=== PATIENT | female | born 1985 | race Caucasian/White ===

== ENCOUNTER 2016-06-27 10:53 | Emergency (ER) | payer OTHER ==
[~2016-06-27] VITALS: Ht 170.1 cm; Wt 77.1 kg
[~2016-06-27 10:53] MED LIST: ATIVAN1 MG PO; CIPRO500 MG PO; Phenergan25 MG PO
[2016-06-27] MEDS ORDERED: CYCLOBENZAPRINE10 MG PO (14:01)
[2016-06-27] MEDS ORDERED: Motrin,Rufen800 MG PO (14:01)
== END 2016-06-27 14:14 | disposition home or self-care (01) ==
LOC: ED 10:53
DX: S13.9XXA Sprain of joints and ligaments of unspecified parts of neck, initial encounter (principal); F17.200 Nicotine dependence, unspecified, uncomplicated; Z88.1 Allergy status to other antibiotic agents; V89.2XXA Person injured in unspecified motor-vehicle accident, traffic, initial encounter; Y93.89 Activity, other specified; Y92.89 Other specified places as the place of occurrence of the external cause; Y99.9 Unspecified external cause status

== ENCOUNTER → 2017-07-18 | Outpatient (CLI) | payer OTHER ==
[~2017-07-18] MED LIST changes: +CYCLOBENZAPRINE10 MG PO; +Motrin,Rufen800 MG PO
== END | disposition home or self-care (01) ==
LOC: US 10:41
DX: M79.662 Pain in left lower leg (principal)

== ENCOUNTER 2017-07-27 16:58 | Emergency (ER) | payer OTHER ==
[~2017-07-27] VITALS: Ht 170.1 cm; Wt 74.8 kg
[~2017-07-27 16:58] MED LIST changes: -XARE15TA PO
[2017-07-27] MEDS ORDERED: XARE15TA PO (17:18)
[2017-07-27 17:35] LABS: BASO # 0.1 10*3/uL (0.0-0.1); BASO % 0.8 % (0.0-1.0); EOS # 0.2 10*3/uL (0.0-0.4); EOS % 2.7 % (1.0-4.0); HEMATOCRIT 38.9 % (37.0-47.0); HEMOGLOBIN 13.3 g/dl (12.0-16.0); LYMPH # 1.6 10*3/uL (1.3-4.4); LYMPH % 19.8 % (27.0-41.0); MEAN CELL VOLUME 94.4 fl (81.0-99.0); MEAN CORPUSCULAR HGB 32.3 pg (27.0-31.0); MEAN CORPUSCULAR HGB CONC 34.2 g/dl (33.0-37.0); MEAN PLATELET VOLUME 11.6 fl (9.6-12.3); MONO # 0.6 10*3/uL (0.1-1.0); MONO % 7.2 % (3.0-9.0); NEUT # 5.4 10*3/uL (2.3-7.9); NEUT % 69.2 % (47.0-73.0); PLATELET COUNT AUTOMATED 201 10*3/uL (130-400); RED BLOOD COUNT 4.12 10*6/uL (4.10-5.10); RED CELL DISTRI WIDTH 12.5 % (0-14.5); WHITE BLOOD COUNT 7.8 10*3/uL (4.8-10.8)
[2017-07-27 17:44] LABS: ACT PARTIAL THROMBO TIME 23.7 SECONDS (20.8-31.5); INTERNATIONAL NORM RATIO 0.9 (2.0-3.5)
[2017-07-27 17:54] LABS: ALBUMIN 3.6 gm/dl (3.1-4.5); BUN 9 mg/dl (7-24); CHLORIDE 106 mmol/L (98-107); CREATININE 0.77 mg/dL (0.55-1.02); POTASSIUM 3.9 mmol/L (3.5-5.1); SGOT/AST 16 IU/L (3-35); SGPT/ALT 18 U/L (12-78); SODIUM 141 mmol/L (136-145)
[2017-07-27 18:03] LABS: ALKALINE PHOSPHATASE 73 U/L (45-117)
== END 2017-07-27 18:13 | disposition home or self-care (01) ==
LOC: ED 16:58
PROVIDERS: Physician Assistant
DX: I82.492 Acute embolism and thrombosis of other specified deep vein of left lower extremity (principal); F17.200 Nicotine dependence, unspecified, uncomplicated

== ENCOUNTER → 2017-07-27 | Outpatient (CLI) | payer OTHER ==
[~2017-07-27] MED LIST changes: +XARE15TA PO
== END | disposition home or self-care (01) ==
LOC: US 16:29
DX: I82.492 Acute embolism and thrombosis of other specified deep vein of left lower extremity (principal)

== ENCOUNTER → 2017-09-09 | Outpatient (CLI) | payer OTHER ==
[~2017-09-09] MED LIST changes: +XARE15TA PO
[2017-09-09 20:59] LABS: BASO # 0.1 10*3/uL (0.0-0.1); BASO % 0.8 % (0.0-1.0); EOS # 0.1 10*3/uL (0.0-0.4); EOS % 1.2 % (1.0-4.0); HEMATOCRIT 37.5 % (37.0-47.0); HEMOGLOBIN 12.3 g/dl (12.0-16.0); LYMPH # 2.3 10*3/uL (1.3-4.4); LYMPH % 24.2 % (27.0-41.0); MEAN CELL VOLUME 97.9 fl (81.0-99.0); MEAN CORPUSCULAR HGB 32.1 pg (27.0-31.0); MEAN CORPUSCULAR HGB CONC 32.8 g/dl (33.0-37.0); MONO # 0.6 10*3/uL (0.1-1.0); MONO % 6.1 % (3.0-9.0); NEUT # 6.5 10*3/uL (2.3-7.9); NEUT % 67.5 % (47.0-73.0); PLATELET COUNT AUTOMATED 218 10*3/uL (130-400); RED BLOOD COUNT 3.83 10*6/uL (4.10-5.10); RED CELL DISTRI WIDTH 12.4 % (0-14.5); WHITE BLOOD COUNT 9.6 10*3/uL (4.8-10.8)
[2017-09-09 21:13] LABS: ACT PARTIAL THROMBO TIME 35.1 SECONDS (20.8-31.5); INTERNATIONAL NORM RATIO 1.1 (2.0-3.5)
== END ==
LOC: LAB 20:14
PROVIDERS: Emergency Medicine
DX: I74.9 Embolism and thrombosis of unspecified artery (principal)

== ENCOUNTER → 2017-09-11 | Outpatient (CLI) | payer OTHER | END | disposition home or self-care (01) | LOC: US 02:48 | DX: I82.4Z2 Acute embolism and thrombosis of unspecified deep veins of left distal lower extremity (principal) ==

== ENCOUNTER → 2017-10-05 | Outpatient (CLI) | payer OTHER | LOC: US 06:30 | DX: N93.9 Abnormal uterine and vaginal bleeding, unspecified (principal) ==

== ENCOUNTER 2021-10-05 14:36 | Emergency (ER) | payer SELFPAY ==
[~2021-10-05] VITALS: Ht 170.1 cm; Wt 90.7 kg
[2021-10-05] MEDS ORDERED: AMOXICILLIN500 M2 PO (17:20)
== END 2021-10-05 18:00 | disposition home or self-care (01) ==
LOC: ED 14:36
DX: J02.0 Streptococcal pharyngitis (principal); Z79.899 Other long term (current) drug therapy